=== PATIENT | male | born 1990 | race African-American/Black ===

== ENCOUNTER 2018-04-15 11:48 | Emergency (ER) | payer OTHER ==
[~2018-04-15] VITALS: Ht 175.3 cm; Wt 87.5 kg
[2018-04-15 14:05] VITALS: BP 110/79
== END 2018-04-15 14:06 | disposition home or self-care (01) ==
LOC: M.ERS 11:48
DX: S83.8X2A Sprain of other specified parts of left knee, initial encounter (principal); Z91.012 Allergy to eggs; W01.0XXA Fall on same level from slipping, tripping and stumbling without subsequent striking against object, initial encounter; Y93.89 Activity, other specified; Y92.89 Other specified places as the place of occurrence of the external cause; Y99.8 Other external cause status